=== PATIENT | male | born 1975 | race Caucasian/White ===

== ENCOUNTER 2017-01-06 16:50 | Emergency (ER) ==
[2017-01-06 16:54] VITALS: BP 109/74; TEMP 98; BMI 22.1
[2017-01-06] MEDS ORDERED: ROCEPHIN IM STA (17:24)
[2017-01-06] MEDS ORDERED: ZITHROMAX PO STA (17:24)
[2017-01-06] MEDS ORDERED: LIDOCAINE 1 % AMP 5 ML (SUTURES) IM STA (17:24)
--- NOTE | 2017-01-06 17:27 | ED.PDOC ---
General ED Provider: Dr. BRANDON DA SILVA Chief Complaint: Penile Problem Stated Complaint: discharge and burning, my girl friend is diagnosed with gonorrhea, Time Seen by Physician: 17:25 Mode of Arrival: Walk-In Information Source: Patient Primary Care Provider: JUAN JOSE MALIK Nursing and Triage Documentation Reviewed and Agree: Yes Complaint Exam - STD Male Complaint/Exam Symptoms Are: Still present Timing: Constant Initial Severity: Mild Current Severity: Mild Location: Reports: Penis Character: Recent STD exposure (girl friend has gonorrhea.) Aggravating: Reports: None Alleviating: Reports: None Associated Signs and Symptoms: Reports: Dysuria. Denies: Penile sores, Scrotal pain, Scrotal swelling, Testicular pain, Testicular swelling Related Surgical History: Reports: None Genitalia Exam: Present: Normal findings Differential Diagnoses: STD Review of Systems - Review Of Systems Constitutional: Reports: No symptoms Eyes: Reports: No symptoms Ears, Nose, Mouth, Throat: Reports: No symptoms Respiratory: Reports: No symptoms Cardiac: Reports: No symptoms GI: Reports: No symptoms : Reports: Dysuria, Discharge Musculoskeletal: Reports: No symptoms Skin: Reports: No symptoms Neurological: Reports: No symptoms Endocrine: Reports: No symptoms Hematologic/Lymphatic: Reports: No symptoms All Other Systems: Reviewed and Negative Past Medical History - Past Medical History Previously Healthy: Yes Endocrine: Reports: None Cardiovascular: Reports: None Respiratory: Reports: None Hematological: Reports: None Gastrointestinal: Reports: None Genitourinary: Reports: None Neuro/Psych: Reports: Anxiety, Depression Musculoskeletal: Reports: None Cancer: Reports: None - Surgical History General Surgical History: Reports: Orthopedic (left finger amputation), Back Surgery - Family History Family History: Reports: None - Social History Smoking Status: Current every day smoker Smoking Cessation Counseling Time: > 3 min - 10 min Hx Substance Use: No Alcohol Screening: Occasionally Physical Exam - Physical Exam Appearance: Well-appearing, No pain distress, Well-nourished Eyes: SHAGUFTA, EOMI, Conjunctiva clear ENT: Ears normal, Nose normal, Oropharynx normal Respiratory: Airway patent, Breath sounds clear, Breath sounds equal, Respirations nonlabored Cardiovascular: RRR, Pulses normal, No rub, No murmur GI/: Soft, Nontender, No masses, Bowel sounds normal, No Organomegaly Musculoskeletal: Normal strength, ROM intact, No edema, No calf tenderness Skin: Warm, Dry, Normal color Neurological: Sensation intact, Motor intact, Reflexes intact, Cranial nerves intact, Alert, Oriented Psychiatric: Affect appropriate, Mood appropriate Critical Care Note - Critical Care Note Total Time (mins): 0 Course - Course Orders, Labs, Meds: Orders Category Date Time Status CBC W/ AUTO DIFF Stat LAB 01/06/17 17:15 Ordered Azithromycin [Zithromax] MEDS 01/06/17 17:24 Stat 1,000 mg PO ONCE STA Ceftriaxone Sodium [Rocephin] MEDS 01/06/17 17:24 Stat 250 mg IM ONCE STA Lidocaine HCl/Pf [Lidocaine 1 % Amp 5 ml (Sutures)] MEDS 01/06/17 17:24 Stat 0.9 ml IM ONCE STA Vital Signs: Temp Pulse Resp BP Pulse Ox 01/06/17 16:51 98.0 F 103 H 16 109/74 99 Departure - Departure Time of Disposition: 17:29 Disposition: HOME SELF-CARE Discharge Problem: STD (male) Instructions: Sexually Transmitted Diseases in Adolescents (ED), Safe Sex Practices for Adolescents (ED) Condition: Stable Pt referred to PMD for follow-up: Yes Additional Instructions: If still having problems needs evaluation Allergies/Adverse Reactions: Allergies Penicillins Adverse Reaction (Verified 01/06/17 16:53) Home Medications: Ambulatory Orders Diazepam [Valium] 10 mg PO TID 06/12/14 Fluoxetine HCl [Prozac] 40 mg PO DAILY #30 08/23/16 Disposition Discussed With: Patient
[2017-01-06 17:32] LABS: BASOPHILS # (AUTO) 0.1 K/uL (0-0.2); BASOPHILS % (AUTO) 0.9 % (0.0-3.0); EOSINOPHILS # (AUTO) 0.3 K/ul (0.0-0.7); EOSINOPHILS % (AUTO) 3.9 % (0.0-7.0); HEMATOCRIT 40.4 % (42.0-52.0); HEMOGLOBIN 13.6 g/dl (14.0-18.0); IMMATURE GRANULOCYTE % (AUTO) 0.4 % (0.0-5.0); LYMPHOCYTES # (AUTO) 2.2 K/uL (0.60-3.4); LYMPHOCYTES % (AUTO) 27.3 (10.0-50.0); MEAN CORPUSCULAR HEMOGLOBIN 30.2 pg (27.0-31.0); MEAN CORPUSCULAR HGB CONC 33.7 (31.8-35.4); MEAN CORPUSCULAR VOLUME 89.6 fl (80.0-94.0); MONOCYTES # (AUTO) 0.6 K/uL (0.4-2.0); MONOCYTES % (AUTO) 7.4 (0-10); NEUTROPHILS # (AUTO) 4.9 K/ul (2.0-6.9); NEUTROPHILS % (AUTO) 60.1; PLATELET COUNT 294 10^3/uL (140-440); RED BLOOD COUNT 4.51 10^6/ul (4.70-6.10); WHITE BLOOD COUNT 8.14 K/ul (4.2-10.2)
== END 2017-01-06 18:15 | disposition home or self-care (01) ==
LOC: ED 16:50
DX: A64 Unspecified sexually transmitted disease (principal); F17.210 Nicotine dependence, cigarettes, uncomplicated
CPT/HCPCS: 36415; 85025; 96372; 99283

== ENCOUNTER 2017-02-08 14:19 | Emergency (ER) ==
[2017-02-08 14:30] VITALS: BP 112/79; TEMP 96.8; BMI 18.4
[2017-02-08] MEDS ORDERED: ZOFRAN 4 MG/2 ML IM STA (14:39)
[2017-02-08 15:13] LABS: BASOPHILS % (AUTO) 0.6 % (0.0-3.0); EOSINOPHILS # (AUTO) 0.2 K/ul (0.0-0.7); EOSINOPHILS % (AUTO) 4.7 % (0.0-7.0); HEMATOCRIT 48.2 % (42.0-52.0); HEMOGLOBIN 16.1 g/dl (14.0-18.0); IMMATURE GRANULOCYTE % (AUTO) 0.2 % (0.0-5.0); LYMPHOCYTES # (AUTO) 1.9 K/uL (0.60-3.4); LYMPHOCYTES % (AUTO) 36.3 (10.0-50.0); MEAN CORPUSCULAR HGB CONC 33.4 (31.8-35.4); MEAN CORPUSCULAR VOLUME 89.9 fl (80.0-94.0); MONOCYTES # (AUTO) 0.4 K/uL (0.4-2.0); NEUTROPHILS # (AUTO) 2.6 K/ul (2.0-6.9); NEUTROPHILS % (AUTO) 51.2; PLATELET COUNT 260 10^3/uL (140-440); RED BLOOD COUNT 5.36 10^6/ul (4.70-6.10); WHITE BLOOD COUNT 5.12 K/ul (4.2-10.2)
[2017-02-08 15:37] LABS: FLU INTERNAL QC INTERNAL QC VALID; RAPID FLU A NEGATIVE (NEGATIVE); RAPID FLU B NEGATIVE (NEGATIVE)
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
--- NOTE | 2017-02-08 15:56 | CT ---
EXAM: CT abdomen pelvis without contrast HISTORY: Abdominal pain COMPARISON: CT lumbar spine 11/27/2014 TECHNIQUE: Serial axial images of the abdomen pelvis were performed from the lung bases through the inferior pelvis without contrast. These were viewed in multiple planes. FINDINGS: The lung bases are clear. Evaluation of the abdomen pelvis is limited due to lack of contrast. The liver and gallbladder are unremarkable. The adrenal glands are unremarkable. The right kidney demonstrates a nonobstructing 0.3 cm stone. The left kidney is unremarkable. There is a round calcification in the left pelvis o n image 68 measuring 0.2 cm in diameter. This region was not evaluated on previous studies. The sp chad is unremarkable. Pancreas is unremarkable. The stomach is mildly distended. The small bowel in the abdomen pelvis is unremarkable. The colon demonstrates no evidence of obstruction or inflammation. The appendix is not well visualized due to lack of intra-abdominal fat with no right lower quadrant secondary signs of inflammation. Urinary bladder is distended. The prostate is upper limit of normal for size. The osseous structures demon strate stable posterior fusion hardware with internal fixation screws at L4 and S1. There is discon tinuity of the right S1 internal fixation screw proximally which is unchanged. There is stable disc ontinuity of the posterior fusion hardware becky on the left. There is unchanged compression deformit y at L5. IMPRESSION: 1. No acute intra-abdominal or pelvic process are inflammation. There is a punctate calcification in the inferior left pelvis in the region of the left ureter with no visualized hydronephrosis or hy droureter. This may represent a phlebolith versus distal nonobstructing stone. This region was not imaged on prior examination. 2. Nonobstructing right renal stone. 3. Posterior fusion hardware in the lumbar spine with postsurgical changes and compression fracture at L5 are unchanged.
[2017-02-08 16:16] LABS: POTASSIUM 4.5 mmol/L (3.5-5.1)
[2017-02-08 16:17] LABS: ANION GAP 12.5; BILIRUBIN,TOTAL 0.5 mg/dL (0.00-1.20); CALCIUM 9.2 mg/dL (8.2-10.2); CREATININE 0.6 mg/dL (0.60-1.10)
[2017-02-08 16:18] LABS: ALBUMIN 4.2 g/dL (3.4-5.0); ALBUMIN/GLOBULIN RATIO 1.17; TOTAL PROTEIN 7.8 g/dL (6.4-8.2)
--- NOTE | 2017-02-08 16:29 | ED.PDOC ---
General ED Provider: Dr. MAITE TERAN Chief Complaint: Nausea/Vomiting Stated Complaint: N/V Time Seen by Physician: 14:20 Mode of Arrival: Walk-In Information Source: Patient Exam Limitations: No limitations Primary Care Provider: JUAN JOSE MALIK Nursing and Triage Documentation Reviewed and Agree: Yes GI Complaint Exam - Vomiting/Diarrhea Complaint/Exam Onset/Duration: 5 DAYS Symptoms Are: Resolved Episodes of Vomiting over last 24 Hours: 3 Episodes of Diarrhea Over Last 24 Hours: 0 Initial Severity: Mild Current Severity: None Character of Vomiting: Reports: Non-bilious Aggravating: Reports: None Alleviating: Reports: None Associated Signs and Symptoms: Reports: Abdominal pain. Denies: Dizziness, Light-headedness, Melena, Hematemesis, Fever, Cramping Non-GI Risk Factors: Reports: None Surgical Obstruction Risk Factors: Reports: None Related Surgical History: Reports: None Abdominal Findings: Present: None Differential Diagnoses: Viral Gastroenteritis Review of Systems - Review Of Systems Constitutional: Reports: No symptoms Eyes: Reports: No symptoms Ears, Nose, Mouth, Throat: Reports: No symptoms Respiratory: Reports: No symptoms Cardiac: Reports: No symptoms GI: Reports: Nausea, Vomiting : Reports: No symptoms Musculoskeletal: Reports: No symptoms Skin: Reports: No symptoms Neurological: Reports: No symptoms Endocrine: Reports: No symptoms Hematologic/Lymphatic: Reports: No symptoms All Other Systems: Reviewed and Negative Past Medical History - Past Medical History Previously Healthy: Yes Endocrine: Reports: None Cardiovascular: Reports: None Respiratory: Reports: None Hematological: Reports: None Gastrointestinal: Reports: None Genitourinary: Reports: None Neuro/Psych: Reports: Anxiety, Depression Musculoskeletal: Reports: None Cancer: Reports: None - Surgical History General Surgical History: Reports: Orthopedic (left finger amputation), Back Surgery - Family History Family History: Reports: None - Social History Smoking Status: Current every day smoker, Light tobacco smoker Hx Substance Use: Yes (per Hx) Alcohol Screening: Occasionally Physical Exam - Physical Exam Appearance: Well-appearing, No pain distress, Well-nourished Eyes: SHAGUFTA, EOMI, Conjunctiva clear ENT: Ears normal, Nose normal, Oropharynx normal Respiratory: Airway patent, Breath sounds clear, Breath sounds equal, Respirations nonlabored Cardiovascular: RRR, Pulses normal, No rub, No murmur GI/: Soft, Nontender, No masses, Bowel sounds normal, No Organomegaly Musculoskeletal: Normal strength, ROM intact, No edema, No calf tenderness Skin: Warm, Dry, Normal color Neurological: Sensation intact, Motor intact, Reflexes intact, Cranial nerves intact, Alert, Oriented Psychiatric: Affect appropriate, Mood appropriate Critical Care Note - Critical Care Note Total Time (mins): 0 Course - Course Hematology/Chemistry: 02/08/17 15:00 02/08/17 15:00 Orders, Labs, Meds: Lab Review 02/08/17 02/08/17 15:00 15:05 WBC 5.12 RBC 5.36 Hgb 16.1 Hct 48.2 MCV 89.9 MCH 30.0 MCHC 33.4 RDW Coeff of Joshua 12.7 Plt Count 260 Immature Gran % (Auto) 0.2 Neut % (Auto) 51.2 Lymph % (Auto) 36.3 [place] % (Auto) 7.0 Eos % (Auto) 4.7 Baso % (Auto) 0.6 Immature Gran # (Auto) 0.0 Neut # 2.6 Lymph # 1.9 [place] # 0.4 Eos # 0.2 Baso # 0.0 Sodium 139 Potassium 4.5 Chloride 102 Carbon Dioxide 29 Anion Gap 12.5 BUN 12 Creatinine 0.60 Estimated GFR (MDRD) 149.00 BUN/Creatinine Ratio 20.00 Glucose 97 Calcium 9.2 Total Bilirubin 0.50 AST 42 H ALT 78 Alkaline Phosphatase 109 Total Protein 7.8 Albumin 4.2 Globulin 3.6 Albumin/Globulin Ratio 1.17 Amylase 59 Lipase 14 Influenza A (Rapid) Negative Influenza B (Rapid) Negative Orders Category Date Time Status EKG-(ED ONLY) Stat CARDIO 02/08/17 14:39 Completed AMYLASE Stat LAB 02/08/17 15:00 Completed CBC W/ AUTO DIFF Stat LAB 02/08/17 15:00 Completed COMPREHENSIVE METABOLIC PANEL Stat LAB 02/08/17 15:00 Completed LIPASE Stat LAB 02/08/17 15:00 Completed MOLECULAR GROUP A STREP Stat LAB 02/08/17 15:05 Results RAPID FLU A/B Stat LAB 02/08/17 15:05 Completed STREP SCREEN Stat LAB 02/08/17 15:05 Results URINALYSIS C & S IF INDICATED Stat LAB 02/08/17 14:39 Uncollected Ondansetron HCl/Pf [Zofran 4 mg/2 ml] MEDS 02/08/17 14:39 Discontinued 4 mg IM ONCE STA CHEST, 2 VIEWS PA & LAT Stat RADS 02/08/17 14:[address] ABDOMEN/PELVIS WO CONTRAST Stat RADS 02/08/17 14:40 Completed Medications Discontinued Medications Generic Name Dose Route Start Last Admin Trade Name Masoudq PRN Reason Stop Dose Admin Ondansetron HCl 4 mg 02/08/17 14:39 02/08/17 14:52 Zofran 4 Mg/2 Ml IM 02/08/17 14:40 4 mg ONCE STA Administration Vital Signs: Temp Pulse Resp BP Pulse Ox 02/08/17 14:19 96.8 F L 96 H 20 112/79 99 Departure - Departure Time of Disposition: 16:29 Disposition: HOME SELF-CARE Discharge Problem: Nausea, Vomiting, Acute viral syndrome Instructions: Viral Syndrome (ED) Condition: Good Pt referred to PMD for follow-up: No Allergies/Adverse Reactions: Allergies Penicillins Adverse Reaction (Verified 02/08/17 14:30) Home Medications: Ambulatory Orders 1 [No Reported Medications] 02/08/17
== END 2017-02-08 17:27 | disposition home or self-care (01) ==
LOC: ED 14:19
DX: B34.9 Viral infection, unspecified (principal); N20.0 Calculus of kidney; R91.1 Solitary pulmonary nodule; R11.2 Nausea with vomiting, unspecified; R10.9 Unspecified abdominal pain; F17.210 Nicotine dependence, cigarettes, uncomplicated
CPT/HCPCS: 36415; 80053; 82150; 83690; 85025; 87651; 87804; 87880; 93005; 93010; 96372; 99283

== ENCOUNTER 2017-02-26 10:33 | Outpatient (CLI) ==
--- NOTE | 2017-02-26 11:57 | CT ---
EXAM: CT chest with contrast. HISTORY: Tobacco use. Abnormal chest radiograph. COMPARISON: 02/08/2017. TECHNIQUE: Multiple axial images of the chest were obtained following intravenous administration of 75 mL of Omnipaque 350, low osmolar. Images were reformatted in the sagittal and coronal planes. FINDINGS: No mediastinal, hilar, or axillary lymphadenopathy identified. Heart size is normal. Th ere is no pericardial effusion. Mild centrilobular emphysematous changes noted in the upper lobes. No suspicious nodule, consolidat ion, pleural effusion or pneumothorax identified. Limited images of the upper abdomen are unremarkable. No acute osseous abnormality detected. IMPRESSION: 1. No pulmonary nodule to correspond to recent radiograph. 2. Mild emphysema.
== END 2017-02-26 10:34 | disposition home or self-care (01) ==
LOC: RAD 10:33
PROVIDERS: ATTEND Family Medicine
DX: R93.8 Abnormal findings on diagnostic imaging of other specified body structures (principal); Z72.0 Tobacco use

== ENCOUNTER 2017-07-12 00:37 | Emergency (ER) ==
[2017-07-12 00:46] VITALS: BP 111/79; TEMP 97.9; BMI 23.6
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
[2017-07-12] MEDS ORDERED: MORPHINE 4 MG/ML SYRINGE IM STA (02:04)
[2017-07-12] MEDS ORDERED: ZOFRAN 4 MG/2 ML IM STA (02:04)
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
--- NOTE | 2017-07-12 02:07 | ED.PDOC ---
General ED Provider: Dr. ROCK WORTHINGTON-ER Chief Complaint: Shoulder Pain/Injury Stated Complaint: i fell on my shoulder--i think something is wrong Time Seen by Physician: 00:40 Mode of Arrival: Walk-In Information Source: Patient Exam Limitations: No limitations Primary Care Provider: JUAN JOSE MALIK Nursing and Triage Documentation Reviewed and Agree: Yes Musculoskeletal Complaint Exam - Shoulder Pain Complaint/Exam Mechanism of Injury: Reports: Trauma Onset/Duration: several minutes Symptoms Are: Still present Timing: Constant Initial Severity: Mild Current Severity: Moderate Location: Reports: Discrete Character: Reports: Dull, Aching Aggravating: Reports: Movement, Lifting, Flexion, Extension, Internal rotation, External rotation, Abduction Associated Signs and Symptoms: Reports: Swelling, Bruising. Denies: Redness, Fever, Weakness, Numbness, Tingling Non-Orthopedic Risk Factors: Reports: None Related Surgical History: Reports: None Shoulder Findings: Present: Swelling, Ecchymosis Tenderness: Present: Clavicle Differential Diagnoses: Closed Fracture Review of Systems - Review Of Systems Constitutional: Reports: No symptoms Eyes: Reports: No symptoms Ears, Nose, Mouth, Throat: Reports: No symptoms Respiratory: Reports: No symptoms Cardiac: Reports: No symptoms GI: Reports: No symptoms : Reports: No symptoms Musculoskeletal: Reports: Joint pain, Joint swelling, Muscle pain Skin: Reports: No symptoms Neurological: Reports: No symptoms Endocrine: Reports: No symptoms Hematologic/Lymphatic: Reports: No symptoms All Other Systems: Reviewed and Negative Past Medical History - Past Medical History Previously Healthy: Yes Endocrine: Reports: None Cardiovascular: Reports: None Respiratory: Reports: None Hematological: Reports: None Gastrointestinal: Reports: None Genitourinary: Reports: None Neuro/Psych: Reports: Anxiety, Depression Musculoskeletal: Reports: None Cancer: Reports: None - Surgical History General Surgical History: Reports: Orthopedic (left finger amputation), Back Surgery - Family History Family History: Reports: None - Social History Smoking Status: Current every day smoker, Heavy tobacco smoker Hx Substance Use: Yes (per Hx) Alcohol Screening: Occasionally Lives: With family - Immunizations Tetanus Shot up to Date: Yes Physical Exam - Physical Exam Appearance: Well-appearing, No pain distress, Well-nourished Pain Distress: Moderate Eyes: SHAGUFTA, EOMI, Conjunctiva clear ENT: Ears normal, Nose normal, Oropharynx normal Neck: Supple Respiratory: Airway patent, Breath sounds clear, Breath sounds equal, Respirations nonlabored Cardiovascular: RRR, Pulses normal, No rub, No murmur GI/: Soft, Nontender, No masses, Bowel sounds normal, No Organomegaly Musculoskeletal: Limited ROM Skin: Warm, Dry, Normal color Neurological: Sensation intact, Motor intact, Reflexes intact, Cranial nerves intact, Alert, Oriented Psychiatric: Affect appropriate Interpretation - Radiology Interpretation Radiology Interpretation By: Radiologist Radiology Results: Positive Critical Care Note - Critical Care Note Total Time (mins): 0 Course - Course Orders, Labs, Meds: Orders Category Date Time Status Splint [ED SPLINT APPLICATION] .ONCE EMERGENCY 07/12/17 02:04 Active Morphine Sulfate [Morphine 4 mg/ml Syringe] MEDS 07/12/17 02:04 Stat 4 mg IM ONCE STA Ondansetron HCl/Pf [Zofran 4 mg/2 ml] MEDS 07/12/17 02:04 Stat 4 mg IM ONCE STA CLAVICLE, LEFT 2 VIEWS Stat RADS 07/12/17 00:49 Ordered SHOULDER, LEFT MIN 2V Stat RADS 07/12/17 00:49 Completed Medications Generic Name Dose Route Start Last Admin Trade Name Freq PRN Reason Stop Dose Admin Morphine Sulfate 4 mg 07/12/17 02:04 Morphine 4 Mg/Ml Syringe IM 07/12/17 02:05 ONCE STA Ondansetron HCl 4 mg 07/12/17 02:04 Zofran 4 Mg/2 Ml IM 07/12/17 02:05 ONCE STA Vital Signs: Temp Pulse Resp BP Pulse Ox 07/12/17 00:38 97.9 F 96 H 18 111/79 98 Departure - Departure Time of Disposition: 02:07 Disposition: HOME SELF-CARE Discharge Problem: Clavicle fracture Qualifiers: Encounter type: initial encounter Clavicle location: shaft Fracture type: closed Fracture alignment: displaced Laterality: left Qualifier Code: (S42.022A ) Displaced fracture of shaft of left clavicle, initial encounter for closed fracture Instructions: Clavicle Fracture (ED) Condition: Good Pt referred to PMD for follow-up: Yes Additional Instructions: stay in splint--norco 7.5mg q 4hrs prn pain #18--take copies of your xrays with you and be seen at the ortho walk in clinic tomorrow Allergies/Adverse Reactions: Allergies Penicillins Adverse Reaction (Verified 09/01/17 00:46) Home Medications: Ambulatory Orders Diazepam [Valium] 10 mg PO QID PRN 07/12/17 Fluoxetine HCl [Prozac] 10 mg PO DAILY 07/12/17 Disposition Discussed With: Patient
== END 2017-07-12 02:31 | disposition home or self-care (01) ==
LOC: ED 00:37
DX: S42.022A Displaced fracture of shaft of left clavicle, initial encounter for closed fracture (principal); V19.9XXA Pedal cyclist (driver) (passenger) injured in unspecified traffic accident, initial encounter; F17.210 Nicotine dependence, cigarettes, uncomplicated
CPT/HCPCS: 96372; 99283

== ENCOUNTER 2018-02-14 08:05 | Outpatient (CLI) ==
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
== END 2018-02-14 08:06 | disposition home or self-care (01) ==
LOC: RAD 08:05
PROVIDERS: ATTEND Physician Assistant
DX: R74.8 Abnormal levels of other serum enzymes (principal)